=== PATIENT | female | born 1950 | race Caucasian/White ===

== ENCOUNTER 2019-10-21 08:21 | Inpatient (IN) | payer BC ==
[2019-10-15 11:13] VITALS: BMI 34.6
--- NOTE | 2019-10-21 08:00 | HP ---
Satellite [facility] - Chief Complaint Chief Complaint: left knee pain - Past Medical History Allergies/Adverse Reactions: Allergies Allergy/AdvReac Type Severity Reaction Status Date / Time tetracycline Allergy Severe Swelling Verified 09/29/19 13:14 - Current Medications Current Medications: Home Medications Medication Instructions Recorded Multivitamin [Multiple Vitamins] 2 tab PO DAILY 09/29/19 Polaprezinc (Zinc Carnosine) 2 tab PO DAILY 10/15/19 [Pepzingi] Satellite Physical Exam - Physical Examination General Appearance: Well Nourished, Well Developed, Alert & Oriented x3 ENT: Clear Lung: Normal air movement Extremities: Other (left knee- + swelling, + ttp, decr rom ,nvi, xrays show grade 4 tricompartmental djd) Neurological: Intact, Alert, Oriented Satellite Impression/Plan - Impression/Plan Impression: left knee djd Operative Procedure: left dusty tkr Date to be Performed: 10/21/19
[2019-10-21] MEDS ORDERED: LIDOCAINE HCL/PF 2% SDV 5ML VIAL ONE (09:09)
[2019-10-21] MEDS ORDERED: PROPOFOL 20 ML ONE ×2 (09:10→10:44)
[2019-10-21] MEDS ORDERED: SODIUM CHLORIDE 0.9% P/F 10 ML VIAL IJ ONE (09:45)
[2019-10-21] MEDS ORDERED: MIDAZOLAM HCL 2 MG/2 ML SINGLE DOSE VIAL ONE ×2 (09:45→10:39)
[2019-10-21] MEDS ORDERED: BUPIVACAINE LIPOSOME/PF (EXPAREL) 266 MG/20 ML VIAL ONE (09:45)
[2019-10-21] MEDS ORDERED: ceFAZolin SODIUM 1 GM VIAL ONE ×2 (10:08→11:00)
[2019-10-21] MEDS ORDERED: VANCOMYCIN 1,000 MG VIAL (RESTRICTED TO ID ONLY) ONE (10:08)
[2019-10-21] MEDS ORDERED: BUPIVACAINE HCL/PF 0.5% (5MG/ML) 10 ML VIAL ONE (10:21)
[2019-10-21] MEDS ORDERED: SUCCINYLCHOLINE CHLORIDE 200 MG/10 ML SYRINGE ONE (10:44)
[2019-10-21] MEDS ORDERED: MAGNESIUM HYDROX 2400MG/30ML ORAL SUSPENSION 30 ML CUP PO PRN (10:55)
[2019-10-21] MEDS ORDERED: MAG HYDROX/AL HYDROX/SIMETH 30 ML UNIT-DOSE CUP PO PRN (10:55)
[2019-10-21] MEDS ORDERED: ONDANSETRON 4 MG/2 ML VIAL IVPUSH PRN ×2 (10:55→12:30)
[2019-10-21] MEDS ORDERED: TRANEXAMIC ACID 1000 MG/10 ML VIAL IVPUSH ONE (11:00)
[2019-10-21] MEDS ORDERED: CEFAZOLIN 2 GM in DEXTROSE 5%-WATER - 50 ML IVPB ONE (11:00)
[2019-10-21] MEDS ORDERED: TRANEXAMIC ACID 1000 MG/10 ML VIAL ONE (11:00)
[2019-10-21] MEDS ORDERED: LACTATED RINGERS SOLUTION 1,000 ML IV SCH (11:00)
[2019-10-21] MEDS ORDERED: CELECOXIB 200 MG CAPSULE PO ONE (11:00)
[2019-10-21] MEDS ORDERED: ceFAZolin SODIUM 1 GM VIAL IVPB ONE (11:08)
[2019-10-21] MEDS ORDERED: DEXAMETHASONE SOD PHOSPHATE 4 MG/1 ML VIAL ONE (11:15)
[2019-10-21] MEDS ORDERED: ONDANSETRON 4 MG/2 ML VIAL ONE (11:16)
[2019-10-21] MEDS ORDERED: KETOROLAC TROMETHAMINE 30 MG/1 ML VIAL ONE (11:33)
[2019-10-21] MEDS ORDERED: VANCOMYCIN 1,000 MG VIAL (RESTRICTED TO ID ONLY) IVPB ONE (11:36)
--- NOTE | 2019-10-21 12:22 | OP ---
Operative Note - Note: Operative Date: 10/21/19 (matthew) Pre-Operative Diagnosis: left knee djd Operation: left dusty tkr Post-Operative Diagnosis: Same as Pre-op Surgeon: Zachary Bearden Grinder Set Up Operator Gear Tool: Javier Caballero Anesthesia: Spinal, Local Specimens Removed: bone fragments Estimated Blood Loss (mls): 150
[2019-10-21] MEDS ORDERED: oxyCODONE HCL 5 MG TABLET PO PRN ×2 (12:30)
[2019-10-21] MEDS ORDERED: PROMETHAZINE HCL 25 MG/1 ML VIAL IVPUSH PRN (12:30)
[2019-10-21] MEDS: ACETAMINOPHEN 325 MG TABLET (FP) PO SCH ×3 (16:41→19:35)
--- NOTE | 2019-10-21 19:07 | SPEC ---
DATE OF OPERATION: 10/21/2019 PREOPERATIVE DIAGNOSIS: Degenerative joint disease, left knee. POSTOPERATIVE DIAGNOSIS: Degenerative joint disease, left knee. PROCEDURE: Left total knee replacement with robotic-assisted navigation (Makoplasty). SURGICAL ATTENDING: Zachary Bearden MD. MINER PICK: TORSTEN Castillo. ANESTHESIA: Regional and spinal. CLOSURE: A cemented 2 femur, 2 tibia, 11 polyethylene, 29 patella, 0 Vicryl fascia, 2-0 subcutaneous, 3-0 Monocryl subcuticular with skin glue for skin, 4-0 undyed Vicryl for pin site. ESTIMATED BLOOD LOSS: Negligible. COMPLICATIONS: None. CONDITION: To recovery room in stable condition. DESCRIPTION OF OPERATIVE PROCEDURE: Patient was taken to the operating room on October 21, 2019. Regional and general anesthesia was administered by the anesthesiologist. IV Kefzol and TXA were administered by the anesthesiologist. Well-padded pneumatic tourniquet was placed on the proximal thigh. The left lower extremity was prepped and draped in the usual sterile fashion. The leg was exsanguinated with an Esmarch bandage, and tourniquet was inflated to 275 mmHg. A 12 to 15-cm longitudinal midline incision was incised while centered over the patella. The dissection was carried down to the level of the extensor mechanism with sufficient flaps made to adequately perform the procedure. A medial parapatellar arthrotomy was then performed. We made a cuff of tissue on the patella for later closure. The patella was inverted, the knee was flexed up. The fat pad was excised. The subperiosteal dissection was on the anteromedial proximal tibia around towards the direction of the MCL. The ACL and the PCL were transected and debrided. The meniscal remnants of the medial and lateral meniscus were debrided and removed. This allowed the knee to be able to "be brought forward." The checkpoints were malleted into the tibia and into the femur. Two threaded pins were drilled anteroposteriorly proximal to the knee through the previous incision, through the anterior cortex, then just engaging the posterior cortex. To these pins was assembled the femoral navigation array. One handbreadth below the tibial tubercle, 2 stab incisions were used to drill 2 threaded pins in parallel fashion into the tibia, again through the anterior cortex and just engaging the posterior cortex. To these pins was fastened the tibial arrays. The knee was then registered with the navigation device with center of rotation of the hip, medial and lateral malleoli, both checkpoints, and multiple points on both the femur and the tibia to ensure excellent registration. The navigation device was directed off the "top of the bubbles" on both the femur and the tibia. The navigation passed within less than 0.5 mm to plan. The knee was then thoroughly inspected to remove all osteophytes both medially, laterally, and on the femur and the tibia, and whatever osteophytes were available for dissection. The knee was then taken to extension and to flexion, and stressed in both varus and valgus to assess flexion gaps. The virtual position of the components on the navigation device were then manipulated to optimize the position and to ensure equal gaps in both flexion and extension, and both medially and laterally. The robot was then brought into the field and was registered. The cuts were then made both on the femur and on the tibia as to plan. All osteophytes posteriorly were then removed as well. The gaps were then measured again in flexion and extension to be equal in both flexion and extension and medial and laterally. The femoral notch was then made, as we were doing a posterior stabilizing component, with the appropriate sized box. Trial reduction of the femur achieved excellent [id number] fit. A tibial baseplate of appropriate polyethylene thickness was "floated in the knee." It was ensured to be in the excellent position by navigation devices and was pinned in place. The knee was taken through a range of motion, and found to have excellent stability throughout flexion and extension. The patella was calibrated for thickness and osteotomized down to the appropriate level. The appropriate lollipop was used to drill the lugholes in the patella and the trial button was applied. The knee was taken through a range of motion and found to have excellent tracking of the patella, and patella from full extension to full flexion. Trial components were removed, the keel was punched and drilled, and a sclerotic bone on the tibia was drilled to help with cement interdigitation. The knee was thoroughly irrigated with the pulse antibiotic building associate. The real components were then cemented in using monitored arrangement cement techniques with antibiotic cement, and pressurization and extension. After the cement was hardened, the knee was thoroughly inspected to remove any extra cement. The real polyethylene component was then clipped into place. Range of motion, stability, and tracking were as described earlier. The checkpoints and the pins were removed. The knee was thoroughly irrigated with antibiotic irrigation. Vancomycin powder was placed into the knee for antibiotic prophylaxis. The medial parapatellar arthrotomy was then closed using number 1 Vicryl interrupted suture. After closure of the deep layer, the knee was taken through a range of motion, and found to have excellent stability of the patella with no dislocation and no undue tension on the repair. The subcutaneous was pulse antibiotic irrigated, and was then closed with 2-0 Vicryl, 3-0 Monocryl subcuticular with the skin glue for the skin. The distal tibial pin site was irrigated thoroughly as well and then closed with 4-0 undyed Vicryl. A sterile Aquacel dressing was applied, followed by a Mahoney dressing. Tourniquet was deflated. Total tourniquet time was approximately 75 minutes. No complications. Patient was awakened from anesthesia and transferred to recovery room in stable condition. Postoperative x-rays revealed excellent position of the components. Deann [id number]
[2019-10-21] MEDS: CEFAZOLIN 2 GM/D5W 2 GM/50 ML ML IVPB SCH (19:37)
[2019-10-21] MEDS: PANTOPRAZOLE 40 MG TABLET PO SCH (19:37)
[2019-10-21] MEDS: oxyCODONE HCL 10 MG SUSTAINED ACTING TABLET PO SCH (21:18)
[2019-10-21] MEDS: SENNOSIDES/DOCUSATE COMBO (SENNA PLUS) TABLET (UD) PO SCH (21:19)
[2019-10-22] MEDS: ACETAMINOPHEN 325 MG TABLET (FP) PO SCH ×4 (00:12→18:01)
[2019-10-22] MEDS: CEFAZOLIN 2 GM/D5W 2 GM/50 ML ML IVPB SCH (01:12)
--- NOTE | 2019-10-22 08:26 | PN ---
Progress Note (short form) - Note Progress Note: Ortho Pt seen and examined s/p left dusty tkr pod #1 Selected Entries 10/22/19 05:00 Temperature 98.0 F Pulse Rate 63 Respiratory 18 Rate Blood Pressure 94/57 L dressing c/d/i, calf soft, nt rom 0-30, nvi a/p PT dvt ppx pain control d/c home tomorrow if stable
[2019-10-22] MEDS ORDERED: traMADol HCL 50 MG TABLET PO PRN (08:45)
[2019-10-22 09:09] LABS: HEMATOCRIT 33.5 % (32.4-45.2); HEMOGLOBIN 11.6 GM/dl (10.7-15.3); MCHC 34.5 g/dl (32.0-36.0); MEAN CELL VOLUME 87.1 fl (80-96); MEAN PLT VOLUME 11.7 fl (7.5-11.1); PLATELET COUNT 153 K/MM3 (134-434); RBC 3.84 M/mm3 (3.60-5.2); RDW 13.3 % (11.6-15.6); WHITE BLOOD COUNT 10.1 K/mm3 (4.0-10.8)
[2019-10-22] MEDS: PANTOPRAZOLE 40 MG TABLET PO SCH (09:32)
[2019-10-22] MEDS: ASPIRIN 325 MG TABLET PO SCH (09:32)
[2019-10-22] MEDS: MULTIVITAMINS (DAILY MVI) TABLET (FP) PO SCH (09:34)
[2019-10-22] MEDS: oxyCODONE HCL 10 MG SUSTAINED ACTING TABLET PO SCH ×2 (09:34→21:42)
[2019-10-22] MEDS: SENNOSIDES/DOCUSATE COMBO (SENNA PLUS) TABLET (UD) PO SCH ×2 (09:34→21:43)
--- NOTE | 2019-10-22 13:04 | PN ---
Progress Note (short form) - Note Progress Note: POD #1 s/p LTKR makoplasty with spinal and adductor canal/selective tibial block. Had nausea/dizziness with oxycodone. Does not want to take opiates. Cannot use NSAIDS due to prior gastric sleeve. Advised to continue around the clock scheduled Tylenol and to try Ultram for breakthru pain. All questions answered.
[2019-10-23] MEDS: ACETAMINOPHEN 325 MG TABLET (FP) PO SCH ×3 (00:30→13:00)
[2019-10-23 08:29] LABS: HEMATOCRIT 31.2 % (32.4-45.2); HEMOGLOBIN 10.8 GM/dl (10.7-15.3); MCH 30.4 pg (25.7-33.7); MCHC 34.4 g/dl (32.0-36.0); MEAN CELL VOLUME 88.2 fl (80-96); MEAN PLT VOLUME 11.1 fl (7.5-11.1); PLATELET COUNT 110 K/MM3 (134-434); RBC 3.54 M/mm3 (3.60-5.2); RDW 13.4 % (11.6-15.6)
--- NOTE | 2019-10-23 08:33 | PN ---
Progress Note (short form) - Note Progress Note: Ortho Pt seen and examined s/p left dusty tkr pod #2 Selected Entries 10/23/19 06:00 Temperature 98.1 F Pulse Rate 65 Respiratory 18 Rate Blood Pressure 113/63 Laboratory Tests 10/22/19 07:12 WBC 10.1 Hgb 11.6 Hct 33.5 Plt Count 153 dressing c/d/i, calf soft, nt rom 0-40, nvi a/p PT dvt ppx pain control d/c home today f/u in 1 week
--- NOTE | 2019-10-23 08:34 | DS ---
Physical Examination Vital Signs: Vital Signs Temperature 98.1 F 10/23/19 06:00 Pulse Rate 65 10/23/19 06:00 Respiratory Rate 18 10/23/19 06:00 Blood Pressure 113/63 10/23/19 06:00 O2 Sat by Pulse Oximetry (%) 96 10/23/19 06:00 Discharge Summary Problems reviewed: Yes Reason For Visit: OSTEOARTHRITIS Procedures: Principal: s/p left dusty tkr Hospital Course: admitted for elective left dusty tkr, post-op per protocol, stable for d/c Condition: Good - Instructions Diet, Activity, Other Instructions: Post-op Instructions-Total Knee Replacement Call the office for a follow-up appointment in 1 week - [phone] Aspirin 325mg daily for 6 weeks. Pain medication was sent into your pharmacy. Apply Graduated Compression Stockings (TEDs) to both lower extremities- remove daily for hygiene ONLY Apply Sequential Compression Device (SCDs) to both Lower extremities remove for PT and hygiene ONLY Apply cold packs to affected area for 15 minutes every 2 hours. Physical Therapist will come to your home for the first 5 days. You will be set up with outpatient PT at your first post-operative visit. Patient may ambulate as tolerated-encourage self care (at least every 2-3 hours while awake) with walker or cane Maintain Aquacel (waterproof) dressing to operative wound (will be removed by surgeon at first office visit) Shower with Aquacel dressing in place-if Aquacel integrity compromised, remove and apply dry sterile dressing and notify Orthopedist. DO NOT SHOWER unless Orthopedists approves without Aquacel dressing CONTACT THE OFFICE FOR ANY CHANGE IN YOUR CONDITION (for example-fever greater than 102 degrees, excessive bleeding from operative site, purulent drainage, severe swelling or pain) GO TO THE EMERGENCY ROOM IF THERE IS A MEDICAL EMERGENCY Knee Precautions: * Keep a rolled towel under affected heel while in bed or chair (to keep knee in extension) * Keep affected leg elevated except during mealtimes * DO NOT PLACE PILLOW UNDER AFFECTED KNEE * If you have any questions, please do not hesitate to call the office - [phone]. Referrals: Zachary Bearden MD [Staff Physician] - Disposition: VNS/HOME HEALTH CARE - Home Medications Comprehensive Discharge Medication List: Ambulatory Orders Multivitamin [Multiple Vitamins] 2 tab PO DAILY 09/29/19 Polaprezinc (Zinc Carnosine) [Pepzingi] 2 tab PO DAILY 10/15/19 Aspirin [ASA -] 325 mg PO DAILY@0800 tablet 10/21/19 Oxycodone HCl/Acetaminophen [Percocet 5-325 mg Tablet -] 1 - 2 tab PO Q6H #50 tab MDD 8 10/21/19
[2019-10-23] MEDS: ASPIRIN 325 MG TABLET PO SCH (08:52)
[2019-10-23] MEDS ORDERED: PT OWN MED DRAWER 7, Y5N ONE (09:36)
[2019-10-23] MEDS: PANTOPRAZOLE 40 MG TABLET PO SCH (10:00)
[2019-10-23] MEDS: SENNOSIDES/DOCUSATE COMBO (SENNA PLUS) TABLET (UD) PO SCH (10:00)
[2019-10-23] MEDS: MULTIVITAMINS (DAILY MVI) TABLET (FP) PO SCH (10:00)
[2019-10-23] MEDS: oxyCODONE HCL 10 MG SUSTAINED ACTING TABLET PO SCH (10:59)
[2019-10-23 13:57] VITALS: BP 114/62; PULSE 60; TEMP 98.1
--- NOTE | 2019-10-23 16:09 | PATH ---
Surgical Pathology Report Patient Name: DANUTA LAKHANI Med. Rec. #: [id number] /Age/Gender: 1950 (Age: 69) / F Account: [id number] Location: [facility] Taken: 10/21/2019 Received: 10/21/2019 Reported: 10/23/2019 Physicians: Zachary Bearden M.D. Specimen(s) Received LEFT KNEE BONES Clinical History Left knee osteoarthritis Final Diagnosis KNEE BONES, LEFT, TOTAL REPLACEMENT: DEGENERATIVE JOINT DISEASE. Electronically Signed Melissa Alatorre M.D. Gross Description Received in formalin labeled "left knee bones," is a 15.0 x 12.0 x 2.5 cm aggregate of multiple leon-yellow, irregular portions of bone and soft tissue. The tibial plateau measures 6.7 x 4.6 x 1.3 cm. There are no definitive areas of eburnation identified. The articular surfaces are leon-brown and diffusely granular. The underlying trabecular bone is yellow and hard. Practical Nursing Instructor sections are submitted in one cassette, following decalcification. 10/22/2019 [facility]10/22/2019
== END 2019-10-23 16:02 | disposition home health service (06) | DRG 470 ==
LOC: FM/S 08:21
PROVIDERS: ADMIT Orthopaedic Surgery; ATTEND Orthopaedic Surgery
PROC: 8E0Y0CZ Robotic Assisted Procedure of Lower Extremity, Open Approach (ICD-10-PCS; 2019-10-21)
PROC: 0SRD0J9 Replacement of Left Knee Joint with Synthetic Substitute, Cemented, Open Approach (ICD-10-PCS; principal; 2019-10-21 11:03)
DX: M17.12 Unilateral primary osteoarthritis, left knee (principal)
CPT/HCPCS: 36415; 73560-TC-LT-FY; 85027; 88304-TC; 88311-TC; 94760; 97010-GP; 97116-GP; 97161-GP

== ENCOUNTER 2019-10-26 09:47 | Emergency (ER) | payer BC ==
--- NOTE | 2019-10-26 10:00 | PDOC ---
History of Present Illness - General Chief Complaint: Pain Stated Complaint: LEFT CALF PAIN Time Seen by Provider: 10/26/19 10:00 - History of Present Illness Initial Comments: 10/26/19 12:10 pt presents to the ED complaining of worsening LLE pain after L knee replacement 5 days ago. Patient states that she was almost pain free until yesterday night. She increased the amount of physical therapy that she did on Sunday and yes . Denies injury or fever. Denies chest complaints. history of DVT x 1 in the past. Patient has been using flow trons at night for DVT prophylaxis. Has been taking small doses of oxycodone which controllled her pain completely until last night. 10/26/19 12:37 Past History - Medical History Allergies/Adverse Reactions: Allergies Allergy/AdvReac Type Severity Reaction Status Date / Time tetracycline Allergy Severe Swelling Verified 09/29/19 13:14 Home Medications: Ambulatory Orders Multivitamin [Multiple Vitamins] 2 tab PO DAILY 09/29/19 Polaprezinc (Zinc Carnosine) [Pepzingi] 2 tab PO DAILY 10/15/19 Aspirin [ASA -] 325 mg PO DAILY@0800 tablet 10/21/19 Acetaminophen [Tylenol -] 1,000 mg PO PRN PRN 10/26/19 Oxycodone HCl/Acetaminophen [Percocet 5-325 mg Tablet -] 0.25 tab PO Q6H MDD 8 10/26/19 Anemia: No Asthma: No Cancer: No Cardiac Disorders: No CVA: Yes (APR 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 prenancy lost Baby had D/C on heparin 2 weeks) COPD: No CHF: No Dementia: No Diabetes: (pre diabetes patient stated) GI Disorders: Yes (gastritis) Disorders: Yes (H/O renal stones , Benign nodule in kidneys) HTN: No Hypercholesterolemia: No Liver Disease: No Seizures: No Thyroid Disease: No - Surgical History Abdominal Surgery: No (gastric sleeve 09/2011) Appendectomy: No Cardiac Surgery: No Cholecystectomy: No Lung Surgery: No Neurologic Surgery: No Orthopedic Surgery: Yes (LEFT KNEE ARTHROSCOPY) - Psycho-Social/Smoking History Smoking History: Never smoked Have you smoked in the past 12 months: No Review of Systems - Review of Systems Able to Perform ROS?: Yes Is the patient limited Nigerien proficient: No Constitutional: No: Symptoms Reported, See HPI, Chills, Diaphoresis, Fever, Loss of Appetite, Malaise, Night Sweats, Weakness, Weight Stable, Unintentional Wgt. Loss, Unexplained wgt Loss, Other HEENTM: No: Symptoms Reported, See HPI, Eye Pain, Blurred Vision, Tearing, Recent change in vision, Double Vision, Cataracts, Ear Pain, Ocular Prothesis, Ear Discharge, Nose Pain, Nose Congestion, Tinnitus, Nose Bleeding, Hearing Loss, Throat Pain, Throat Swelling, Mouth Pain, Dental Problems, Difficulty Swallowing, Mouth Swelling, Other Respiratory: No: Symptoms reported, See HPI, Cough, Orthopnea, Shortness of Breath, SOB with Exertion, SOB at Rest, Stridor, Wheezing, Productive cough, Hemoptysis, Other Cardiac (ROS): No: Symptoms Reported, See HPI, Chest Pain, Edema, Irregular Heart Rate, Lightheadedness, Palpitations, Syncope, Chest Tightness, Other ABD/GI: No: Symptoms Reported, See HPI, Abdominal Distended, Abd. Pain w/ defecation, Blood Streaked Bowels, Constipated, Diarrhea, Difficulty Swallowing, Nausea, Poor Appetite, Poor Fluid Intake, Rectal Bleeding, Vomiting, Indigestion, Abdominal cramping, Tarry Stools, Other : No: Symptoms Reported, See HPI, Burning, Dysuria, Discharge, Frequency, Flank Pain, Hematuria, Incontinence, Pain, Urgency, Testicular Mass, Testicular Swelling, Lesions, Testicular Pain, Other Musculoskeletal: Yes: Muscle Pain. No: Symptoms Reported, See HPI, Back Pain, Gout, Joint Pain, Joint Swelling, Muscle Weakness, Neck Pain, Joint Stiffness, Other Integumentary: No: Symptoms Reported, See HPI, Bruising, Change in Color, Change in Hair/Nails, Dryness, Erythema, Flushing, Lesions, Lumps, Pallor, Pruritus, Rash, Sweating, Other Neurological: No: Symptoms reported, See HPI, Headache, Numbness, Paresthesia, Pre-Existing Deficit, Seizure, Tingling, Tremors, Weakness, Unsteady Gait, Ataxia, Dizziness, Other *Physical Exam - Physical Exam 10/26/19 12:37 gen: alert, NAD Cv: rrr no m/r/g Pulm: CTa b/l Abdomen:soft, non tender, non distended ext: LLE + slight bruising around knee. pain limited ROM. Minimal knee swelling, no swelling or tenderness of calf. No erythema. Dressings in place over surgical wounds, clean, dry and intact. 10/26/19 12:39 Medical Decision Making - Medical Decision Making 10/26/19 12:41 Pt presents to the ED complaining of increasing LLE pain after knee replacement surgery. No signs or symptoms of infection. concern for DVT. Duplex is negative. Will discharge home. Discharge - Discharge Information Problems reviewed: Yes Clinical Impression/Diagnosis: Leg pain Qualifiers: Laterality: left Qualified Code(s): M79.605 - Pain in left leg Condition: Good Disposition: HOME - Admission No - Follow up/Referral - Patient Discharge Instructions Patient Printed Discharge Instructions: DI for Leg Pain Additional Instructions: you came to the ED for pain in your left leg that has gotten worse since your knee replacement surgery. We did an ultrasound, which was negative for a blood clot. There are no signs of infection. The pain may be from increased soreness of the muscles because you have been doing more physical therapy--try to continue physical therapy but take it a little bit easier tomorrow. Return to the ED for severe pain and swelling, fever, other new or worsening symptoms. - Post Discharge Activity
[2019-10-26 10:22] VITALS: BP 131/75; PULSE 77; TEMP 98.1; BMI 34.2
== END 2019-10-26 12:39 | disposition home or self-care (01) ==
LOC: FER 09:47
DX: M79.605 Pain in left leg (principal)
CPT/HCPCS: 93971-TC; 99284-25

== ENCOUNTER 2019-11-15 06:27 | Emergency (ER) | payer BC ==
[2019-11-15 06:35] VITALS: BMI 34.2
[2019-11-15 06:43] VITALS: BP 128/85; PULSE 86; TEMP 98.2
--- NOTE | 2019-11-15 07:22 | PDOC ---
History of Present Illness - General Chief Complaint: Pain Stated Complaint: RT LEG PAIN Time Seen by Provider: 11/15/19 07:17 - History of Present Illness Initial Comments: 11/15/19 07:40 69yo female with pmhx of cva when she was 42yo, gastritis, gib from xarelto, kidney stones, dvt x1 in 2018, and recent L knee sx on 10/20 with R calf pain x 3- 4 days. Pt states she has been taking asa twice a day, wearing her compression stockings, and using a flow trons at night to prevent a dvt. Pt states pain behind her R fibular head. Pt denies leg swelling. Has been taking tylenol and asa at home for pain. Pt has been doing PT and states her PT was doing extra exercises with the R leg. Pt denies cp/sob. No f/c. No paresthesias. No abd pain. No n/v/d. No other complaints. Pt concerned she has developed another dvt. 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 prenancy lost Baby had D/C on heparin 2 weeks) COPD: No CHF: No Dementia: No Diabetes: (pre diabetes patient stated) GI Disorders: Yes (gastritis) Disorders: Yes (H/O renal stones , Benign nodule in kidneys) HTN: No Hypercholesterolemia: No Liver Disease: No Seizures: No Thyroid Disease: No - Surgical History Abdominal Surgery: Yes (gastric sleeve 09/2011) Appendectomy: No Cardiac Surgery: No Cholecystectomy: No Lung Surgery: No Neurologic Surgery: No Orthopedic Surgery: Yes (LEFT KNEE ARTHROSCOPY) - Psycho-Social/Smoking History Smoking History: Never smoked Have you smoked in the past 12 months: No Review of Systems - Review of Systems Able to Perform ROS?: Yes Is the patient limited Surinamese proficient: No Constitutional: No: Chills, Fever HEENTM: No: Nose Congestion, Throat Swelling Respiratory: No: Cough, Shortness of Breath Cardiac (ROS): No: Chest Pain, Palpitations ABD/GI: No: Diarrhea, Nausea, Vomiting, Abdominal cramping : No: Burning Musculoskeletal: Yes: Muscle Pain (R calf pain) Integumentary: No: Bruising, Erythema Neurological: No: Headache, Numbness, Paresthesia, Tingling, Tremors, Weakness All Other Systems: Reviewed and Negative *Physical Exam - Vital Signs Last Vital Signs Temp Pulse Resp BP Pulse Ox 98.2 F 86 18 128/85 98 11/15/19 06:30 11/15/19 06:30 11/15/19 06:30 11/15/19 06:30 11/15/19 06:30 - Physical Exam General Appearance: Yes: Nourished, Appropriately Dressed. No: Apparent Distress HEENT: positive: EOMI, Normal Voice Neck: positive: Supple Respiratory/Chest: positive: Lungs Clear, Normal Breath Sounds. negative: Respiratory Distress Cardiovascular: positive: Regular Rhythm, Regular Rate, S1, S2. negative: Edema Gastrointestinal/Abdominal: positive: Soft. negative: Guarding, Rebound, Tenderness Extremity: positive: Normal Capillary Refill, Normal Inspection, Calf Tenderness (R calf ttp posterior to the fibular head - pinpoint ttp), Other (incision to L leg well healed and approx). negative: Pedal Edema, Swelling, Erythema, Inflammation Integumentary: positive: Normal Color, Dry, Warm Neurologic: positive: Fully Oriented, Alert, Normal Mood/Affect, Normal Response ED Treatment Course - RADIOLOGY Radiology Studies Ordered: Category Date Time Status DUPLEX VASCUL US-1 LEG [US] Stat Ultrasound 11/15/19 07:17 Ordered Medical Decision Making - Medical Decision Making 11/15/19 07:45 a/p: 69yo female with R calf pain -pt is post op -prior hx of DVT in 2018 for which she took xarelto for 3m, -will send for ultrasound R leg -will monitor and reassess 11/15/19 09:05 ultrasound neg for dvt pt has appt with Dr. Bearden for sunday, suggested keeping this appointment -msk pain stable for dc to home Discharge - Discharge Information Problems reviewed: Yes Clinical Impression/Diagnosis: Leg pain Condition: Stable Disposition: HOME - Admission No - Follow up/Referral Referrals: Tory Elliott [Primary Care Provider] - Zachary Bearden MD [Staff Physician] - - Patient Discharge Instructions Patient Printed Discharge Instructions: DI for Leg Pain Additional Instructions: Please keep your appointment with Dr. Bearden as scheduled. The ultrasound of the right leg did not demonstrate a DVT. Please continue to take aspirin as instructed. Please return to the ER with any further concerns or complaints. Please continue to use your compression stockings. Please also follow up with your PMD. - Post Discharge Activity
== END 2019-11-15 09:14 | disposition home or self-care (01) ==
LOC: FER 06:27
DX: M79.604 Pain in right leg (principal)
CPT/HCPCS: 93971-TC; 99284-25

== ENCOUNTER 2020-06-28 15:17 | Emergency (ER) | payer BC, OTHER ==
[2020-06-28 15:25] VITALS: TEMP 97.8; BMI 33.5
[2020-06-28 16:27] LABS: BASO % 0.5 % (0-2.0); HEMATOCRIT 37.8 % (32.4-45.2); HEMOGLOBIN 12.2 GM/dl (10.7-15.3); LYMPH % 30.3 % (8-40); MCH 28.6 pg (25.7-33.7); MCHC 32.2 g/dl (32.0-36.0); MEAN CELL VOLUME 88.9 fl (80-96); MEAN PLT VOLUME 9.5 fl (7.5-11.1); MONO % 7.5 % (3.8-10.2); NEUT % 60.7 % (42.8-82.8); PLATELET COUNT 155 K/MM3 (134-434); RBC 4.26 M/mm3 (3.60-5.2); WHITE BLOOD COUNT 5.6 K/mm3 (4.0-10.8)
[2020-06-28 16:35] LABS: ALBUMIN 3.7 g/dl (3.4-5.0); CALCIUM 9.4 mg/dl (8.5-10); CREATININE 0.7 mg/dl (0.55-1.3); TOT PROT 6.8 g/dl (6.4-8.2)
[2020-06-28 16:41] LABS: EPITHELIAL CELLS MANY /hpf; URINE MUCUS 2+
[2020-06-28] MEDS ORDERED: SODIUM CHLORIDE 0.9% 1000 ML INFUS.BAG IV ONE (16:41)
[2020-06-28 19:51] VITALS: BP 151/88; PULSE 73
== END 2020-06-28 19:55 | disposition home or self-care (01) ==
LOC: FER 15:17
DX: R10.9 Unspecified abdominal pain (principal)
CPT/HCPCS: 36415; 76775-TC; 76856-TC; 80053; 81003; 81015; 85025; 87086; 99285-25